=== PATIENT | female | born 1950 | race Caucasian/White ===

== ENCOUNTER 2017-07-06 16:13 | Outpatient (CLI) | END 2017-07-06 16:14 | disposition home or self-care (01) | LOC: LAB 16:13 | PROVIDERS: ATTEND Nurse Practitioner Family | DX: J02.9 Acute pharyngitis, unspecified (principal) | CPT/HCPCS: 87651; 87880 ==

== ENCOUNTER 2017-08-10 11:51 | Outpatient (CLI) | END 2017-08-10 11:52 | disposition short-term general hospital (02) | LOC: AMBL 11:51 | PROVIDERS: ATTEND Internal Medicine | DX: R29.810 Facial weakness (principal); H92.09 Otalgia, unspecified ear ==

== ENCOUNTER 2017-12-10 23:52 | Emergency (ER) ==
[2017-12-11 00:05] VITALS: BP 146/76; TEMP 98.2; BMI 27.2
[2017-12-11] MEDS ORDERED: AUGMENTIN 875-125 MG TAB PO STA (00:14)
[2017-12-11] MEDS ORDERED: BOOSTRIX IM ONE (00:14)
--- NOTE | 2017-12-11 00:17 | ED.PDOC ---
General ED Provider: Dr. CHANTELLE STROUD Chief Complaint: Bite Stated Complaint: Got bit on the right hand by her cat. Sustaining puncture wound and hematoma on the hand. Time Seen by Physician: 00:15 Mode of Arrival: Walk-In Information Source: Patient Exam Limitations: No limitations Primary Care Provider: JOSE KELLY Nursing and Triage Documentation Reviewed and Agree: Yes Reviewed sepsis parameters & appropriate labs ordered?: No System Inflammatory Response Syndrome: Not Applicable Sepsis Protocol: For patient's 13 years and over: Temp is 96.8 and below OR 101 and greater Pulse >90 BPM Resp >20/minute Acutely Altered Mental Status Are patient's symptoms suggestive of a new infection, such as: -Pneumonia -Skin, Soft Tissue -Endocarditis -UTI -Bone, Joint Infection -Implantable Device -Acute Abdominal Infection -Wound Infection -Meningitis -Blood Stream Catheter Infection -Unknown System Inflammatory Response Syndrome: Not Applicable Review of Systems - Review Of Systems Constitutional: Reports: No symptoms Skin: Reports: Rash All Other Systems: Reviewed and Negative Past Medical History - Past Medical History Endocrine: Reports: None Cardiovascular: Reports: Hypertension Respiratory: Reports: None Hematological: Reports: None Gastrointestinal: Reports: None Genitourinary: Reports: None Neuro/Psych: Reports: None Musculoskeletal: Reports: None Cancer: Reports: None Last Menstrual Period: UNKNOWN Other Pertinent Past Medical History: BELLS PALSEY - Surgical History General Surgical History: Reports: Tubal ligation - Family History Family History: Reports: None - Social History Smoking Status: Current every day smoker, Heavy tobacco smoker Hx Substance Use: No Alcohol Screening: None - Immunizations Tetanus Shot up to Date: (UNKNOWN) Physical Exam - Physical Exam Appearance: Well-appearing Ill-appearing: Mild Pain Distress: Mild Neck: Supple Respiratory: Airway patent, Breath sounds clear Cardiovascular: RRR, Pulses normal Musculoskeletal: Edema Skin: Warm, Dry Psychiatric: Anxious Critical Care Note - Critical Care Note Total Time (mins): 0 Course - Course Orders, Labs, Meds: Orders Category Date Time Status Amoxicillin/Potassium Clav [Augmentin 875-125 mg Tab] MEDS 12/11/17 00:14 Discontinued 1 tab PO ONCE STA Diphth,Pertuss(Acell),Tet Vac [Boostrix] MEDS 12/11/17 00:14 Discontinued 0.5 ml IM .ONCE ONE Medications Discontinued Medications Generic Name Dose Route Start Last Admin Trade Name Freq PRN Reason Stop Dose Admin Amoxicillin/Clavulanate Potassium 1 tab 12/11/17 00:14 Augmentin 875-125 Mg Tab PO 12/11/17 00:15 ONCE STA Diphtheria/Pertussis/Tetanus Vacc 0.5 ml 12/11/17 00:14 Boostrix IM 12/11/17 00:15 .ONCE ONE Vital Signs: Temp Pulse Resp BP Pulse Ox 12/10/17 23:52 98.2 F 83 18 146/76 H 94 L Departure - Departure Time of Disposition: 00:25 Disposition: HOME SELF-CARE Discharge Problem: Animal bite of hand Qualifiers: Encounter type: initial encounter Laterality: right Qualified Code(s): S61.451A - Open bite of right hand, initial encounter Contusion Qualifiers: Encounter type: initial encounter Contusion area: hand Laterality: right Qualified Code(s): S60.221A - Contusion of right hand, initial encounter Instructions: Diphtheria/Acellular Pertussis/Tetanus Booster Vaccine (By injection), Animal Bite (ED) Condition: Stable Pt referred to PMD for follow-up: Yes IPMP verified?: No Additional Instructions: Take medications as prescribed Follow up with PCP in 3-5 days Keep wound clean and Dry Prescriptions: Amoxicillin/Potassium Clav [Augmentin 875-125 mg Tab] 1 tab PO Q12HR #20 tablet Allergies/Adverse Reactions: Allergies No Known Allergies Allergy (Verified 12/11/17 00:05) Home Medications: Ambulatory Orders Amlodipine Besylate [Norvasc] 10 mg PO DAILY 12/11/17 Amoxicillin/Potassium Clav [Augmentin 875-125 mg Tab] 1 tab PO Q12HR #20 tablet 12/11/17 Cholecalciferol (Vitamin D3) [Vitamin D3] 5,000 unit PO DAILY 12/11/17 Losartan/Hydrochlorothiazide [Losartan-Hctz 100-25 mg Tab] 1 each PO DAILY 12/11 Disposition Discussed With: Family
== END 2017-12-11 00:43 | disposition home or self-care (01) ==
LOC: ED 23:52
DX: S61.451A Open bite of right hand, initial encounter (principal); S60.221A Contusion of right hand, initial encounter; W55.01XA Bitten by cat, initial encounter; F17.210 Nicotine dependence, cigarettes, uncomplicated
CPT/HCPCS: 90471; 90715; 99283

== ENCOUNTER 2018-02-28 14:27 | Outpatient (CLI) | payer OTHER | END 2018-02-28 14:28 | disposition home or self-care (01) | LOC: RHC-LAB 14:27 | PROVIDERS: ATTEND Nurse Practitioner Family | DX: I10 Essential (primary) hypertension (principal) | CPT/HCPCS: 36415; 80053; 80061; 84443; 85025 ==

== ENCOUNTER 2018-07-17 10:28 | Outpatient (CLI) ==
--- NOTE | 2018-07-17 11:19 | CT ---
EXAM: CT Head HISTORY: Facial weakness COMPARISON: None TECHNIQUE: CT head performed without contrast FINDINGS: Hypodensity in the left greater than right frontal regions may reflect artifact, though ag e indeterminate ischemia cannot excluded. This is best seen on axial image 19. There is no mass eff ect, midline shift, or intracranial hemmorhage. There is no extra-axial collection. The ventricles , sulci, and basal cisterns are patent and symmetric. There is chronic ischemic disease of the white matter and cerebral volume loss. There is no depressed calvarial fracture. The mastoid air cells a re clear. The visualized paranasal sinuses are clear. There are intracranial atherosclerotic calcifi cations. IMPRESSION: 1. Hypodensity in the left greater than right frontal regions may reflect artifact, though age indet erminate ischemia cannot be excluded. Recommend correlation with MRI. 2. Chronic ischemic disease of the white matter and cerebral volume loss. Findings called to Bryanna Edgar 11:12 a.m. 07/17/2018
== END 2018-07-17 10:29 | disposition home or self-care (01) ==
LOC: RAD 10:28
PROVIDERS: ATTEND Nurse Practitioner Family
DX: R29.810 Facial weakness (principal); R51 Headache

== ENCOUNTER 2019-01-06 11:40 | Outpatient (CLI) | END 2019-01-06 11:41 | disposition home or self-care (01) | LOC: RHC-LAB 11:40 | PROVIDERS: ATTEND Nurse Practitioner Family | DX: I10 Essential (primary) hypertension (principal); Z72.0 Tobacco use | CPT/HCPCS: 36415; 80053; 80061; 84443; 85025 ==

== ENCOUNTER 2019-01-07 09:38 | Outpatient (CLI) ==
--- NOTE | 2019-01-07 11:43 | CT ---
EXAM: CT BRAIN HISTORY: Facial weakness TECHNIQUE: CT brain without intravenous contrast. 5-mm axial sections with Reformations. COMPARISON: 07/17/2018 FINDINGS: There is mild generalized atrophy. There is mild periventricular and deep white matter low attenuati on which although nonspecific is suggestive of chronic microvascular ischemic change. These findings are stable. Brain otherwise is unremarkable without evidence of hemorrhage or large vessel distribution recent is chemic infarction. There is no suggestion of acute hydrocephalus or subdural fluid collection. No m ass or mass effect. Cranium has no acute finding. Mastoid processes are aerated. The visualized paranasal sinuses are clear. IMPRESSION: No acute intracranial process.
== END 2019-01-07 09:39 | disposition home or self-care (01) ==
LOC: RAD 09:38
PROVIDERS: ATTEND Nurse Practitioner Family
DX: R29.810 Facial weakness (principal); E78.5 Hyperlipidemia, unspecified; I10 Essential (primary) hypertension; Z86.69 Personal history of other diseases of the nervous system and sense organs; Z72.0 Tobacco use

== ENCOUNTER 2019-03-04 10:38 | Outpatient (CLI) | END 2019-03-04 10:39 | disposition home or self-care (01) | LOC: RHC-LAB 10:38 | PROVIDERS: ATTEND Nurse Practitioner Family | DX: R73.9 Hyperglycemia, unspecified (principal) | CPT/HCPCS: 36415; 83037 ==